=== PATIENT | male | born 1940 ===

== ENCOUNTER 2017-05-13 21:25 | Inpatient (IN) | payer OTHER ==
[2017-05-13 22:24] LABS: BASO # 0.1 K/uL (0.0-0.2); BASO % 0.9 % (0.0-2.0); EOS # 0.6 K/uL (0.0-0.7); LYMPH # 2.3 K/uL (1.0-4.3); LYMPH % 27.9 % (20.0-40.0); MEAN CELL VOLUME 92.3 fl (80.0-94.0); MEAN CORPUSCULAR HEMOGLOBIN 29.8 pg (27.0-31.0); MEAN CORPUSCULAR HGB CONC 32.3 g/dL (33.0-37.0); MEAN PLATELET VOLUME 8.4 fl (7.2-11.7); MONO # 0.9 K/uL (0.0-0.8); MONO % 11.4 % (0.0-10.0); NEUT # 4.4 K/uL (1.8-7.0); NEUT % 52.8 % (50.0-75.0); RBC 4.71 Mil/uL (4.40-5.90); RED CELL DISTRIBUTION WIDTH 13.3 % (11.5-14.5); WHITE BLOOD COUNT 8.3 K/uL (4.8-10.8)
[2017-05-13 22:35] LABS: ALT/SGPT 27 U/L (21-72); AST/SGOT 25 U/L (17-59); BLOOD UREA NITROGEN 17 mg/dl (9-20); CALCIUM 9.6 mg/dL (8.4-10.2); GFR AFRICAN-AMERICAN > 60; GFR NON-AFRICAN AMERICAN > 60; HDL CHOLESTEROL 40 MG/DL (30-70)
[2017-05-13 22:41] LABS: INR 0.9 (0.9-1.2); PARTIAL THROMBOPLASTIN TIME 31.3 Seconds (25.6-37.1); PROTHROMBIN TIME 10.4 Seconds (9.8-13.1)
[2017-05-13 22:46] LABS: LDL CHOLESTEROL 195 mg/dL (0-129)
--- NOTE | 2017-05-14 00:20 | CT ---
EXAM: CT Head Without Intravenous Contrast CLINICAL HISTORY: 76 years old, male; Signs and symptoms; Other: Numbness; Additional info: Left facial numbness TECHNIQUE: Axial computed tomography images of the head/brain without intravenous contrast. All CT scans at this facility use one or more dose reduction techniques, viz.: automated exposure control; ma/kV adjustment per patient size (including targeted exams where dose is matched to indication; i.e. head); or iterative reconstruction technique. Coronal and sagittal reformatted images were created and reviewed. COMPARISON: No relevant prior studies available. FINDINGS: Brain: Mild atrophy. No intracranial hemorrhage. No mass. Several scattered foci of decreased attenuation within periventricular/subcortical white matter. No definite edema. Ventricles: No hydrocephalus. Bones/joints: No acute fracture. Soft tissues: Unremarkable. Vasculature: Minimal atherosclerotic disease of intracranial arteries. Sinuses: Scattered minimal to mild mucosal thickening/minimal fluid. Mastoid air cells: No mastoid effusion. Orbits: Unremarkable as visualized. IMPRESSION: 1. Nonspecific white matter changes. Acute infarction may be CT occult within first 24 hours. If a focal deficit persists, consider followup CT or MRI for further evaluation. 2. Incidental/non-acute findings are described above.
--- NOTE | 2017-05-14 00:33 | ED PDOC ---
HPI:STROKE - Time Time: 21:49 - Historian Historian: Patient - Chief Complaint Chief Complaint: Numbness (Left-sided facial numbness) - Onset Date: 05/13/17 Time: 07:00 Onset: Hours (x14 hours) - Timing Timing: Currently Symptomatic, Improved - Context Context: Sitting - Location Locate left: Face - Radiation Radiation: None - Severity of pain Pain Scale:: 0 - Associated Symptoms Associated symptoms:: Numbness - Exacerbated by Exacerbated by:: Nothing - Relieved by Relieved by:: Nothing - TPA Positive for Contraindication: No - Notes: Notes:: 76 year old male presents to ED with complaints of intermittent left-sided facial numbness x14 hours and has a past medical history of arthritis. Patient notes waking up with the numbness. Presents to ED for evaluation after friend advised him to x1 hour ago. (+) left hand numbness and left-sided tongue numbness. (-) trouble ambulating, speaking, swallowing, or facial droop. Notes similar episode x1 month ago but denies ever seeking medical attention. Notes episode spontaneously resolved after a couple of days. Notes taking a baby ASA QD. (-) headache, nausea, vomiting, diarrhea, or SOB. PCP: in [place] NIHSS Stroke Scale - Date/Time Evaluation Performed Date Performed: 05/13/17 Time Performed: 21:49 When Was NIHSS Performed: Baseline - How Severe is the Stroke Level of Consciousness: 0=Alert LOC to Questions: 0=Both comments correct LOC to commands: 0=Obeys both correctly Best Gaze: 0=Normal Visual: 0=No visual loss Facial: 0=Normal Motor Arm - Left: 0=No drift Motor Arm - Right: 0=No drift Motor Leg - Left: 0=No drift Motor Leg - Right: 0=No drift Limb Ataxia: 0=Absent Sensory: 0=Normal Best Language: 0=No aphasia Dysarthia: 0=Normal articulation Extinction & Inattention (Neglect): 0=Normal, no object Score: 0 Severity Of Stroke: 0 = No Stroke rTPA Inclusion/Exclusion - Refusal of Treatment Patient Refused Treatment: No - Inclusion Criteria for Altepase Patient is 18 years or Older: Yes The Clinical Diagnosis of Ischemic Stroke That is Causing a Potentially Disabling Neurological Deficit: Yes Time of Onset is Well Established to be Less Than 270 Minute Before Treatment Would Begin: No Risk/Benefit Discussed With Patient/Family Member Present: Yes - Warning to TPA With Conditions Condition: Stroke Serevity Too Mild, Rapid Improvement Past Medical History Reviewed: Historical Data, Nursing Documentation, Vital Signs Vital Signs: Last Vital Signs Temp 98.2 F 05/13/17 21:32 Pulse 70 05/13/17 21:32 Resp 18 05/13/17 21:32 BP 146/76 05/13/17 21:32 Pulse Ox 96 05/13/17 21:32 - Medical History PMH: Arthritis - Surgical History Surgical History: No Surg Hx - Family History Family History: States: No Known Family Hx - Living Arrangements Living Arrangements: With Family - Social History Current smoker - smoking cessation education provided: No Ex-Smoker (has not smoked in the last 12 months): No Alcohol: None Drugs: Denies - Home Medications Home Medications: Ambulatory Orders Medication Instructions Recorded Aspirin [Adult Aspirin Regimen] 81 mg PO DAILY 05/14/17 - Allergies Allergies/Adverse Reactions: Allergies Allergy/AdvReac Type Severity Reaction Status Date / Time No Known Allergies Allergy Verified 05/27/14 16:21 Review of Systems ROS Statement: Except As Marked, All Systems Reviewed And Found Negative Respiratory: Negative for: Shortness of Breath Gastrointestinal: Negative for: Nausea, Vomiting, Diarrhea Neurological: Positive for: Numbness (left sided facial numbness, left hand numbness, left-sided tongue numbness). Negative for: Weakness, Incoordination, Change in Speech, Altered Mental Status, Headache, Other ((-) facial droop, trouble speaking, trouble swallowing) Physical Exam - Reviewed Nursing Documentation Reviewed: Yes Vital Signs Reviewed: Yes - Physical Exam Appears: Positive for: Non-toxic, No Acute Distress Skin: Positive for: Normal Color, Warm, Dry Eye Exam: Positive for: Normal appearance ENT: Positive for: Normal ENT Inspection Neck: Positive for: Normal, Painless ROM, Supple Cardiovascular/Chest: Positive for: Regular Rate, Rhythm. Negative for: Murmur Respiratory: Positive for: Normal Breath Sounds. Negative for: Respiratory Distress Gastrointestinal/Abdominal: Positive for: Soft. Negative for: Tenderness Extremity: Positive for: Normal ROM. Negative for: Deformity Neurologic/Psych: Positive for: Alert, plater apprentice II-XII (intact), Oriented, Cerebellar Tests (intact), Gait (steady). Negative for: Motor/Sensory Deficits , Aphasia, Facial Droop - Laboratory Results Result Diagrams: 05/13/17 22:20 05/13/17 22:20 - ECG O2 Sat by Pulse Oximetry: 96 (RA) Pulse Ox Interpretation: Normal - Critical Care Total Time (In Min): 30 Medical Decision Making Medical Decision Makin Initial impression: left-sided facial numbness Initial plan: Patient is not candidate for code stroke due to length of onset of symptoms as well as NIH stroke scale score of 0 on arrival * CT HEAD * EKG * Labs * Lipid panel * Trop I * PTT/PT * UA 0009 * ASA 324mg PO * Re-eval 0020 FINDINGS: Brain: Mild atrophy. No intracranial hemorrhage. No mass. Several scattered foci of decreased attenuation within periventricular/subcortical white matter. No definite edema. Ventricles: No hydrocephalus. Bones/joints: No acute fracture. Soft tissues: Unremarkable. Vasculature: Minimal atherosclerotic disease of intracranial arteries. Sinuses: Scattered minimal to mild mucosal thickening/minimal fluid. Mastoid air cells: No mastoid effusion. Orbits: Unremarkable as visualized. IMPRESSION: 1. Nonspecific white matter changes. Acute infarction may be CT occult within first 24 hours. If a focal deficit persists, consider followup CT or MRI for further evaluation. 2. Incidental/non-acute findings are described above. 0033 Labs reviewed no clinically significant abnormalities. Patient remains asymptomatic in ED. Case discussed with Dr. Piper (hospitalist) who accepts patient under his care in OBS TELE. Patient refusing admission however on provider re-eval is now agreeable. Dx: TIA Scribe Attestation: Documented by Merly Watkins acting as a scribe for Ubaldo Reeder MD. DO Scribe Attestation: All medical record entries made by the Scribe were at my direction and personally dictated by me. I have reviewed the chart and agree that the record accurately reflects my personal performance of the history, physical exam, medical decision making, and the department course for this patient. I have also personally directed, reviewed, and agree with the discharge instructions and disposition. Disposition - Clinical Impression Clinical Impression: TIA (transient ischemic attack) - Patient ED Disposition Is Patient to be Admitted: Yes (OBS TELE) Counseled Patient/Family Regarding: Studies Performed, Diagnosis - Disposition Disposition Time: 00:33 Condition: STABLE - Pt Status Changed To: Hospital Disposition Of: Observation - POA Present On Arrival: None
--- NOTE | 2017-05-14 01:44 | CP.PCM.HP ---
History of Present Illness - History of Present Illness History of Present Illness: PMD: In [place] Chief complaint: Left face and left upper extremity numbness The patient was britt nd examined in the ED HPI:76 years old male with no significant medical hx comes with Intermittent left facial numbness for 14 hours. He awoke with this numbness which also involves the left side of his tongue. He also has numbness at the upper left extremity. No trouble in swallowing, speaking, nor ambulating. No facial droop nor weakness at the extremities. He had a similar episode one month ago but this resolved spontaneously over few days. PMH: Arthritis PSH: Denies SH: No illegal drug use; no Alcohol use; Never smoked FH: States: No Known family Allergies: NKDA Medication: ASA Present on Admission - Present on Admission Any Indicators Present on Admission: No History of DVT/PE: No History of Uncontrolled Diabetes: No Urinary Catheter: No Decubitus Ulcer Present: No Review of Systems - Constitutional Constitutional: absent: Fatigue, Fever, Headache, Lethargy, Sleep Apnea - EENT Eyes: Requires Corrective Lenses. absent: Floaters, Itchy Eyes, Loss of Peripheral Vision, Spots in Vision Ears: absent: Decreased Hearing, Ear Discharge, Ear Pain, Tinnitus Nose/Mouth/Throat: absent: Epistaxis, Nasal Congestion, Nasal Discharge, Sinus Pain, Sinus Pressure - Cardiovascular Cardiovascular: absent: Chest Pain, Dyspnea, Edema - Respiratory Respiratory: absent: Cough, Dyspnea, Dyspnea on Exertion, Wheezing - Gastrointestinal Gastrointestinal: absent: Abdominal Pain, Constipation, Diarrhea, Nausea, Vomiting - Genitourinary Genitourinary: absent: Dysuria, Flank Pain, Hematuria, Urinary Frequency - Musculoskeletal Musculoskeletal: Arthralgias. absent: Back Pain, Joint Swelling, Muscle Weakness - Integumentary Integumentary: absent: Pruritus, Rash, Skin Ulcer, Sores, Striae, Swelling - Neurological Neurological: Numbness. absent: Confusion, Dizziness, Headaches, Weakness - Psychiatric Psychiatric: absent: Anxiety, Depression, Panic Attacks - Endocrine Endocrine: absent: Palpitations, Polydipsia, Polyphagia, Polyuria - Hematologic/Lymphatic Hematologic: absent: Easy Bleeding, Easy Bruising Past Patient History - Past Medical History & Family History Past Medical History?: Yes - Past Social History Smoking Status: Never Smoked Chewing Tobacco Use: No Cigar Use: No Alcohol: None Drugs: Denies Home Situation {Lives}: With Family - CARDIAC Hx Cardiac Disorders: No - PULMONARY Hx Respiratory Disorders: No - NEUROLOGICAL Hx Neurological Disorder: No - HEENT Hx HEENT Problems: No - RENAL Hx Chronic Kidney Disease: No - HEMATOLOGICAL/ONCOLOGICAL Hx Blood Disorders: No - INTEGUMENTARY Hx Dermatological Problems: No - MUSCULOSKELETAL/RHEUMATOLOGICAL Hx Arthritis: Yes - GASTROINTESTINAL Hx Gastrointestinal Disorders: No - GENITOURINARY/GYNECOLOGICAL Hx Genitourinary Disorders: No - PSYCHIATRIC Hx Psychophysiologic Disorder: No - SURGICAL HISTORY Hx Surgeries: No - ANESTHESIA Hx Anesthesia: No Meds Allergies/Adverse Reactions: Allergies Allergy/AdvReac Type Severity Reaction Status Date / Time No Known Allergies Allergy Verified 05/27/14 16:21 Physical Exam - Constitutional Appears: No Acute Distress - Head Exam Head Exam: ATRAUMATIC, NORMAL INSPECTION, NORMOCEPHALIC - Eye Exam Eye Exam: EOMI, Normal appearance Pupil Exam: NORMAL ACCOMODATION, PERRL - ENT Exam ENT Exam: Mucous Membranes Moist, Normal Exam, Normal External Ear Exam, Normal Oropharynx - Neck Exam Neck exam: Positive for: Full Rom, Normal Inspection - Respiratory Exam Respiratory Exam: Clear to Auscultation Bilateral. absent: Rales, Rhonchi, Wheezes - Cardiovascular Exam Cardiovascular Exam: REGULAR RHYTHM, RRR, +S1, +S2. absent: Diastolic murmur, JVD - GI/Abdominal Exam GI & Abdominal Exam: Normal Bowel Sounds, Soft. absent: Hypoactive Bowel Sounds , Mass, Tenderness - Rectal Exam Rectal Exam: Deferred - Extremities Exam Extremities exam: Positive for: full ROM, normal inspection. Negative for: joint swelling - Back Exam Back exam: NORMAL INSPECTION. absent: CVA tenderness (L), CVA tenderness (R) - Neurological Exam Neurological exam: Alert, CN II-XII Intact, Oriented x3 Additional comments: awake ,Alert, no facial droop, motor strength 5/5 at left upper and left lower extremities. sensation to light touch decreased at the left hand. - Psychiatric Exam Psychiatric exam: Normal Affect, Normal Mood - Skin Skin Exam: Dry, Normal Color, Warm Results - Vital Signs Recent Vital Signs: Last Vital Signs Temp 98.2 F 05/13/17 21:32 Pulse 70 05/13/17 21:32 Resp 18 05/13/17 21:32 BP 146/76 05/13/17 21:32 Pulse Ox 96 05/14/17 01:14 - Labs Result Diagrams: 05/13/17 22:20 05/13/17 22:20 Labs: Laboratory Results - last 24 hr 05/13/17 05/13/17 05/13/17 21:56 22:20 22:20 WBC 8.3 RBC 4.71 Hgb 14.0 Hct 43.5 MCV 92.3 MCH 29.8 MCHC 32.3 L RDW 13.3 Plt Count 292 MPV 8.4 Neut % (Auto) 52.8 Lymph % (Auto) 27.9 Schleicher % (Auto) 11.4 H Eos % (Auto) 7.0 H Baso % (Auto) 0.9 Neut # (Auto) 4.4 Lymph # (Auto) 2.3 Schleicher # (Auto) 0.9 H Eos # (Auto) 0.6 Baso # (Auto) 0.1 PT INR APTT Sodium 142 Potassium 5.0 Chloride 100 Carbon Dioxide 29 Anion Gap 18 BUN 17 Creatinine 0.8 Est GFR ( Amer) > 60 Est GFR (Non-Af Amer) > 60 POC Glucose (mg/dL) 91 Random Glucose 101 Calcium 9.6 Total Bilirubin 0.4 AST 25 ALT 27 Alkaline Phosphatase 72 Troponin I < 0.0120 Total Protein 8.1 Albumin 4.0 Globulin 4.1 H Albumin/Globulin Ratio 1.0 Triglycerides 113 Cholesterol 255 H LDL Cholesterol Direct 195 H HDL Cholesterol 40 05/13/17 22:20 WBC RBC Hgb Hct MCV MCH MCHC RDW Plt Count MPV Neut % (Auto) Lymph % (Auto) Schleicher % (Auto) Eos % (Auto) Baso % (Auto) Neut # (Auto) Lymph # (Auto) Schleicher # (Auto) Eos # (Auto) Baso # (Auto) PT 10.4 INR 0.9 APTT 31.3 Sodium Potassium Chloride Carbon Dioxide Anion Gap BUN Creatinine Est GFR ( Amer) Est GFR (Non-Af Amer) POC Glucose (mg/dL) Random Glucose Calcium Total Bilirubin AST ALT Alkaline Phosphatase Troponin I Total Protein Albumin Globulin Albumin/Globulin Ratio Triglycerides Cholesterol LDL Cholesterol Direct HDL Cholesterol - Impressions Impression: NSR 69/min - Imaging and Cardiology CT scan - head Status: Image reviewed by me, Report reviewed by me Additional comment: EXAM: CT Head Without Intravenous Contrast FINDINGS: Brain: Mild atrophy. No intracranial hemorrhage. No mass. Several scattered foci of decreased attenuation within periventricular/subcortical white matter. No definite edema. Ventricles: No hydrocephalus. Bones/joints: No acute fracture. Soft tissues: Unremarkable. Vasculature: Minimal atherosclerotic disease of intracranial arteries. Sinuses: Scattered minimal to mild mucosal thickening/minimal fluid. Mastoid air cells: No mastoid effusion. Orbits: Unremarkable as visualized. IMPRESSION: 1. Nonspecific white matter changes. Acute infarction may be CT occult within first 24 hours. If a focal deficit persists, consider followup CT or MRI for further evaluation. 2. Incidental/non-acute findings are described above. Assessment & Plan - Assessment and Plan (Free Text) Assessment: #. TIA #. Arthritis Plan: 76 years old male with no significant medical hx comes with Intermittent left facial numbness for 14 hours. He awoke with this numbness which also involves the left side of his tongue. He also has numbness at the upper left extremity. He had a similar episode one month ago but this resolved spontaneously over few days. #. TIA r/o CVA CT- Head 1. Nonspecific white matter changes. Acute infarction may be CT occult within first 24 hours. If a focal deficit persists, consider followup CT or MRI for further evaluation. - Consult Dr rosenberg Neurologist - Neuro check Q4H - ASA - lipitor - LDL 195 - HDL 40 - Follow MRI and MRA of Head - Carotid doppler - ECHO with bubble study - PT/OT #. Arthritis - Pain management #. DVT Prophylaxis with Lovenox #. Code Status: Full - Date & Time Date: 05/14/17 Time: 01:44
[2017-05-14 07:11] LABS: SQUAMOUS EPITHIAL < 1 /hpf (0-5); URINE BILIRUBIN NEGATIVE (NEGATIVE); URINE BLOOD NEGATIVE (NEGATIVE); URINE CLARITY CLEAR (Clear); URINE COLOR YELLOW (YELLOW); URINE GLUCOSE (UA) NEG (Normal); URINE LEUKOCYTE ESTERASE NEG Leu/uL (Negative); URINE NITRATE NEGATIVE (NEGATIVE); URINE PROTEIN NEGATIVE (NEGATIVE); URINE UROBILINOGEN 0.2-1.0 mg/dL (0.2-1.0)
--- NOTE | 2017-05-14 09:46 | MRI ---
PROCEDURE: MRI BRAIN WITHOUT CONTRAST HISTORY: Numbness left face and left upper extremity COMPARISON: Noncontrast head CT from 05/13/2017. TECHNIQUE: Multiplanar, multisequence MR images of the brain were obtained without intravenous contrast enhancement. FINDINGS: HEMORRHAGE: None DWI: There are multifocal small areas of restricted diffusion in the right frontal and parietal cortex as well as border zone deep frontal and parietal white matter. BRAIN PARENCHYMA: There is increased T2/FLAIR hyperintensity corresponding to the areas of restricted diffusion in the right frontal and parietal cortex, and border zone territory. There are moderate chronic microangiopathic changes. There is no mass, mass effect or abnormal extra-axial fluid collection. The midline sagittal structures are normal. VENTRICLES: There is mild age-related global parenchymal volume loss and proportionate enlargement of the ventricles and cortical sulci. CRANIUM: There is normal bone marrow signal pattern. ORBITS: Grossly unremarkable. PARANASAL SINUSES/MASTOIDS: There is mild mucosal thickening in the paranasal sinuses and trace mastoid effusions. VASCULAR SYSTEM: There are normal signal voids in the larger intracranial arteries the. OTHER FINDINGS: None. IMPRESSION: Multifocal small acute infarctions in the right frontal and parietal cortex, and border zone territory. Moderate chronic microangiopathic changes and mild age-related global parenchymal volume loss. Important findings were discussed with nurse Batsheva Billy in the ER on 05/14/2017 at 9:38 a.m.
--- NOTE | 2017-05-14 09:48 | MRI ---
PROCEDURE: Magnetic Resonance Angiography Brain HISTORY: Left face numbness and left upper extremity numbness COMPARISON: None available. TECHNIQUE: 3D time of flight MR angiography of the intracranial arteries was performed. Rotating maximum intensity projection images were generated. FINDINGS: INTERNAL CAROTID ARTERIES: There is normal flow related signal. The skull base, petrous, cavernous and supraclinoid segments are bilaterally widely patient. ANTERIOR CEREBRAL ARTERIES: There is normal flow related signal. The right A1 segment is hypoplastic, an anatomic variant. A1 and A2 segments are widely patent. Smaller distal branches unremarkable, as visualized. MIDDLE CEREBRAL ARTERIES: There is normal flow related signal. M1 and M2 segments are widely patent. Perisylvian branches grossly symmetric. POSTERIOR CIRCULATION: Basilar Artery: There is normal flow related signal. Distal Vertebral Arteries: There is normal flow related signal. Posterior Cerebral Arteries: There is normal flow related signal. There is origin of the right posterior cerebral artery, an anatomic variant. Posterior Inferior Cerebellar Arteries: There is normal flow related signal. ANEURYSM/ VASCULAR MALFORMATIONS: None. OTHER FINDINGS: None. IMPRESSION: Normal MR angiography of the brain.
--- NOTE | 2017-05-14 09:53 | MRI ---
PROCEDURE: MR Angiography of the neck without contrast HISTORY: TIA COMPARISON: None available. TECHNIQUE: 3D [id number] angiography of the neck was performed. Rotating maximum intensity projection images of the cervical carotid and vertebral arteries were generated. The origins of the common carotid arteries were not visualized, which is a limitation inherent to the non-contrast time of flight technique. FINDINGS: RIGHT CAROTID ARTERIES: Common Carotid Artery: Normal. Carotid Bifurcation: Normal. Internal Carotid Artery:There is an apparent short segment stenosis in the internal carotid artery approximately 1.5 cm distal to the origin. External Carotid Artery (proximal branches): Normal. LEFT CAROTID ARTERIES: Common Carotid Artery: Normal. Carotid Bifurcation: Normal. Internal Carotid Artery:Normal. External Carotid Artery (proximal branches): Normal. VERTEBRAL ARTERIES: Right Vertebral Artery: Normal. Left Vertebral Artery: Normal. OTHER FINDINGS: None. IMPRESSION: 1. No evidence of hemodynamically significant stenosis in the internal carotid arteries. 2. Apparent sought segment stenosis in the right internal carotid artery approximately 1.5 cm distal to the origin. Correlation with CTA/MRA of the neck with intravenous contrast is recommended for definitive evaluation.
[2017-05-14] MEDS: Enoxaparin 40 mg Syringe SC SCH (10:39)
[2017-05-14] MEDS ORDERED: Iodixanol 320 MG/ML 100 ML BOTTLE IV ONE (11:30)
[2017-05-14] MEDS ORDERED: Sodium Chloride 0.9% 50 ML IV ONE (11:31)
--- NOTE | 2017-05-14 12:45 | CT ---
PROCEDURE: CT Angiography of the Brain. HISTORY: CVA , stenotic lesion internal carotid COMPARISON: None available. TECHNIQUE: CT angiography of the intracranial arteries was performed. Coronal and sagittal maximum intensity projection reformated images were generated. Radiation dose: Total exam DLP = 606.80 mGy-cm. This CT exam was performed using one or more of the following dose reduction techniques: Automated exposure control, adjustment of the mA and/or kV according to patient size, and/or use of iterative reconstruction technique. FINDINGS: INTERNAL CEREBRAL ARTERIES: Unremarkable. The skull base, petrous, cavernous and supraclinoid segments are bilaterally widely patent. ANTERIOR CEREBRAL ARTERIES: Adequately patent. Hypoplastic right A1 GA segment is identified with the left A1 on the bilateral A2 segments widely patent. Smaller distal branches unremarkable, as visualized. MIDDLE CEREBRAL ARTERIES: Unremarkable. M1 and M2 segments are widely patent. Perisylvian branches grossly symmetric. POSTERIOR CIRCULATION: Basilar Artery: Unremarkable. Distal Vertebral Arteries: Unremarkable. Posterior Cerebral Arteries: Unremarkable. Posterior Inferior Cerebellar Arteries: Unremarkable. NECK CTA: Common Carotid arteries: The bilateral common carotid appear widely patent with limited atherosclerotic plaque identified at the left carotid bulb. Mild atherosclerotic plaque is appreciated at the right carotid bulb without significant stenosis. Internal Carotid arteries: No significant stenosis is appreciated at the left cervical internal carotid artery. However, there is a moderate stenosis identified at the proximal right ICA similar to that seen in the prior cervical MR angiogram 05/14/2017 approximately 1.5 cm from the origin on the order of 60-70 percent in a short segment. Limited atherosclerotic plaque is seen distal to this stenosed segment as well. External Carotid arteries: Trace bilateral atherosclerotic plaque is seen without significant stenosis in the bilateral external carotid arteries. . Vertebral arteries: The bilateral vertebral arteries appear normal in caliber from their origins to their junction with the basilar artery. Vertebrobasilar system appears dominant. No significant stenosis or definite pattern of dissection. Incidentally, the bilateral subclavian arteries are widely patent as well as the brachiocephalic artery. ANEURYSM/ VASCULAR MALFORMATIONS: None. OTHER FINDINGS: Biapical pulmonary fibrosis appreciated. IMPRESSION: 1. A moderate stenosis reiterated at the proximal right ICA and a short segment as described above. No significant left ICA stenosis. Bilateral common carotid arteries are patent the vascular sclerotic plaque identified at the right greater left carotid bulb regions extending into the external carotid artery somewhat. 2. No significant stenosis identified in the CT angiogram of the brain. Congenital findings are minimal as discussed above.
--- NOTE | 2017-05-14 14:02 | US ---
PROCEDURE: Duplex ultrasound of the carotid and vertebral arteries. HISTORY: numbness left face and left upper extremity COMPARISON: CTA an MRA neck from 05/14/2017 TECHNIQUE: Grayscale and duplex Doppler evaluation of the cervical carotid and vertebral arteries were performed. The common carotid, carotid bifurcations and cervical ICA and proximal ECA were evaluated. The vertebral arteries were evaluated for gross patency and direction. FINDINGS: There are calcified atherosclerotic plaques in bilateral carotid bulbs and proximal internal carotid arteries. RIGHT CAROTID ARTERIES: Common Carotid Artery: Normal. Maximal flow velocity of 91.8 cm/s. Carotid Bifurcation: Normal. Internal Carotid Artery:Elevated peak systolic velocity 103.3. Maximal flow velocity of 205.8 cm/s. External Carotid Artery (proximal branches): Normal. Maximal flow velocity of 103.3 cm/s. ICA/CCA Ratio: 2.6 LEFT CAROTID ARTERIES: Common Carotid Artery: Normal. Maximal flow velocity of 109.7 cm/s. Carotid Bifurcation: Normal. Internal Carotid Artery:Normal. Maximal flow velocity of 81.2 cm/s. External Carotid Artery (proximal branches): Normal. Maximal flow velocity of 99.4 cm/s. ICA/CCA Ratio: 0.9 VERTEBRAL ARTERIES: Right Vertebral Artery: Patent. Antegrade flow. Left Vertebral Artery: Patent. Antegrade flow. OTHER FINDINGS: None. IMPRESSION: 1. Elevated peak systolic velocity and ICA/ CCA velocity ratio in the right internal carotid artery corresponding to severe (62 to 79%) stenosis. 2. No evidence of hemodynamically significant stenosis in the left internal carotid artery. 3. Patent vertebral arteries with antegrade flow.
--- NOTE | 2017-05-14 14:06 | CP.PCM.CON ---
History of Present Illness - History of Present Illness History of Present Illness: Mr Christine is a 76 yr old right handed male, orginally from [place] who was well until 14 hours ago, when he awoke with numbness of the left face and left upper extremity and left hadn weakness. He did not have aphasia, dysarthria, gait difficulties or confusion. The patient is here visiting from [place] and is staying with his sister. He denies tobacco, etoh or any other illicit drugs. Of note, about one month ago, he had a similar spell that resolved. PMH: Arthritis PSH: Denies SH: No illegal drug use; no Alcohol use; Never smoked FH: From [place]. has sister who he is visiting. Allergies: NKDA Medication: ASA on exam: aaox3. Pupils 3mm-2mm with light. EOMI. Cn 2-12 normal. speech fluent. Can name and repeat. Motor: strength: left medical records tech is 3/5, we: 2/5, ef: 2/5. Sensory: decreased ft, pin in left arm more than leg. Gait is normal. +2 dtr ul and ll bl. Toes downgoing. No clonus. Past Patient History - Past Medical History & Family History Past Medical History?: Yes - Past Social History Smoking Status: Never Smoked Chewing Tobacco Use: No Cigar Use: No Alcohol: None Drugs: Denies Home Situation {Lives}: With Family - CARDIAC Hx Cardiac Disorders: No - PULMONARY Hx Respiratory Disorders: No - NEUROLOGICAL Hx Neurological Disorder: No - HEENT Hx HEENT Problems: No - RENAL Hx Chronic Kidney Disease: No - HEMATOLOGICAL/ONCOLOGICAL Hx Blood Disorders: No - INTEGUMENTARY Hx Dermatological Problems: No - MUSCULOSKELETAL/RHEUMATOLOGICAL Hx Arthritis: Yes - GASTROINTESTINAL Hx Gastrointestinal Disorders: No - GENITOURINARY/GYNECOLOGICAL Hx Genitourinary Disorders: No - PSYCHIATRIC Hx Psychophysiologic Disorder: No - SURGICAL HISTORY Hx Surgeries: No - ANESTHESIA Hx Anesthesia: No Meds Allergies/Adverse Reactions: Allergies Allergy/AdvReac Type Severity Reaction Status Date / Time No Known Allergies Allergy Verified 05/27/14 16:21 - Medications Medications: Current Medications Aspirin (Ecotrin) 81 mg PO DAILY [facility] Last Admin: 05/14/17 10:39 Dose: 81 mg Atorvastatin Calcium (Lipitor) 40 mg PO DAILY [facility] Enoxaparin Sodium (Lovenox) 40 mg SC DAILY [facility] PRN Reason: Protocol Last Admin: 05/14/17 10:39 Dose: 40 mg Results - Vital Signs Recent Vital Signs: Last Vital Signs Temp 98.0 F 05/14/17 08:35 Pulse 76 05/14/17 08:35 Resp 18 05/14/17 08:35 BP 103/58 L 05/14/17 05:23 Pulse Ox 100 05/14/17 08:35 - Labs Result Diagrams: 05/13/17 22:20 05/13/17 22:20 Labs: Laboratory Results - last 24 hr 05/13/17 05/13/17 05/13/17 21:56 22:20 22:20 WBC 8.3 RBC 4.71 Hgb 14.0 Hct 43.5 MCV 92.3 MCH 29.8 MCHC 32.3 L RDW 13.3 Plt Count 292 MPV 8.4 Neut % (Auto) 52.8 Lymph % (Auto) 27.9 Riley % (Auto) 11.4 H Eos % (Auto) 7.0 H Baso % (Auto) 0.9 Neut # (Auto) 4.4 Lymph # (Auto) 2.3 Riley # (Auto) 0.9 H Eos # (Auto) 0.6 Baso # (Auto) 0.1 ESR PT INR APTT Sodium 142 Potassium 5.0 Chloride 100 Carbon Dioxide 29 Anion Gap 18 BUN 17 Creatinine 0.8 Est GFR ( Amer) > 60 Est GFR (Non-Af Amer) > 60 POC Glucose (mg/dL) 91 Random Glucose 101 Calcium 9.6 Total Bilirubin 0.4 AST 25 ALT 27 Alkaline Phosphatase 72 Troponin I < 0.0120 Total Protein 8.1 Albumin 4.0 Globulin 4.1 H Albumin/Globulin Ratio 1.0 Triglycerides 113 Cholesterol 255 H LDL Cholesterol Direct 195 H HDL Cholesterol 40 Urine Color Urine Clarity Urine pH Ur Specific Chester Urine Protein Urine Glucose (UA) Urine Ketones Urine Blood Urine Nitrate Urine Bilirubin Urine Urobilinogen Ur Leukocyte Esterase Urine RBC (Auto) Urine Microscopic WBC Ur Squamous Epith Cells 05/13/17 05/14/17 05/14/17 22:20 05:45 06:49 WBC RBC Hgb Hct MCV MCH MCHC RDW Plt Count MPV Neut % (Auto) Lymph % (Auto) Riley % (Auto) Eos % (Auto) Baso % (Auto) Neut # (Auto) Lymph # (Auto) Riley # (Auto) Eos # (Auto) Baso # (Auto) ESR 43 H PT 10.4 INR 0.9 APTT 31.3 Sodium Potassium Chloride Carbon Dioxide Anion Gap BUN Creatinine Est GFR ( Amer) Est GFR (Non-Af Amer) POC Glucose (mg/dL) Random Glucose Calcium Total Bilirubin AST ALT Alkaline Phosphatase Troponin I Total Protein Albumin Globulin Albumin/Globulin Ratio Triglycerides Cholesterol LDL Cholesterol Direct HDL Cholesterol Urine Color Yellow Urine Clarity Clear Urine pH 7.0 Ur Specific Chester 1.013 Urine Protein Negative Urine Glucose (UA) Neg Urine Ketones Negative Urine Blood Negative Urine Nitrate Negative Urine Bilirubin Negative Urine Urobilinogen 0.2-1.0 Ur Leukocyte Esterase Neg Urine RBC (Auto) 3 Urine Microscopic WBC < 1 Ur Squamous Epith Cells < 1 - Imaging and Cardiology MRI - head Additional comment: MRI Brain : shows two acute strokes, ischemic in the right parietal and right MCA distribution. CTA : shows moderate Right iCA stenosis. Assessment & Plan - Assessment and Plan (Free Text) Assessment: 76 yr old male with new embolic stroke in right mca territory, most likely from rt ica stenosis as etiology. We will consult interventional for possible ICA stenting, start stroke workup and dual antiplatelet therapy. Plan: 1. Admit to telemetry floor 2. ECHO, Carotid Dopplers 3. Asa and plavix 4. Consult 5. Keep BP at 180-190/90 6. physical speech and occupational therapy Dr.Gautami Christine MD, DPN
[2017-05-14 17:52] VITALS: BMI 22.0
--- NOTE | 2017-05-14 21:00 | CARD ---
APPROVED REPORT EXAM: Two-dimensional and M-mode echocardiogram with Doppler and color Doppler. Other Information Quality : GoodRhythm : NSR INDICATION CVA/TIA Echo Enhancing Agent Indication: Rule Out Septal Defect Agent/Amount Used: Agitated Saline 2D DIMENSIONS IVSd0.63 (0.7-1.1cm)LVDd4.28 (3.9-5.9cm) LVOT Diameter1.76 (1.8-2.4cm)PWd0.63 (0.7-1.1cm) IVSs1.16 (0.8-1.2cm)LVDs2.50 (2.5-4.0cm) FS (%) 41.5 %PWs1.19 (0.8-1.2cm) LVEF (%)55.0 (>50%) M-Mode DIMENSIONS Left Atrium (MM)3.29 (2.5-4.0cm)IVSd0.93 (0.7-1.1cm) Aortic Root3.32 (2.2-3.7cm)LVDd4.94 (4.0-5.6cm) Aortic Cusp Exc.1.54 (1.5-2.0cm)PWd0.82 (0.7-1.1cm) IVSs1.29 cmFS (%) 40 % LVDs2.99 (2.0-3.8cm)PWs1.13 cm Mitral Valve MV E Hwtdbtuw66.4cm/sMV DECEL [id number] A Ppftyvaz76.8cm/s MV [id number]/A ratio1.2MVA (PHT)4.58cm2 TDI Lateral E' Peak V11.08cm/sMedial E' Peak V6.76cm/sE/Lateral E'4.5 E/Medial E'7.5 Pulmonary Valve PV Peak Vroyvhvt96.0cm/s LEFT VENTRICLE The left ventricle is normal size. There is mild concentric left ventricular hypertrophy. The left ventricular function is normal. The left ventricular ejection fraction is within the normal range. There is normal LV segmental wall motion. Transmitral Doppler flow pattern is abnormal. RIGHT VENTRICLE The right ventricle is normal size. There is normal right ventricular wall thickness. The right ventricular systolic function is normal. ATRIA The left atrium size is normal. The right atrium size is normal. AORTIC VALVE The aortic valve is moderately thickened. There is mild aortic regurgitation. There is no aortic valvular stenosis. MITRAL VALVE The mitral valve is moderately thickened. There is no mitral valve stenosis. There is no mitral valve regurgitation noted. TRICUSPID VALVE The tricuspid valve is normal in structure. There is no tricuspid valve regurgitation noted. PULMONIC VALVE The pulmonary valve is normal in structure. There is trace pulmonic valvular regurgitation. GREAT VESSELS The aortic root is normal in size. The IVC was not visualized. PERICARDIAL EFFUSION The pericardium appears normal. <Conclusion> The left ventricle is normal size. There is mild concentric left ventricular hypertrophy. The left ventricular function is normal. The left ventricular ejection fraction is within the normal range. There is normal LV segmental wall motion. There is mild aortic regurgitation. Can not rule out a small PFO
--- NOTE | 2017-05-14 21:46 | CARD ---
APPROVED REPORT EKG Measurement Heart [id number] <Conclusion> Normal sinus rhythm Left axis deviation Minimal voltage criteria for LVH, may be normal variant Abnormal ECG
[2017-05-15] MEDS: Enoxaparin 40 mg Syringe SC SCH (09:05)
--- NOTE | 2017-05-15 11:45 | CP.PCM.PN ---
Subjective - Date & Time of Evaluation Date of Evaluation: 05/15/17 Time of Evaluation: 10:45 - Subjective Subjective: most of his left sided numbness resolved however still with some left arm numbness denies motor weakness no CP no SOB no abd pain gait stable Objective - Vital Signs/Intake and Output Vital Signs (last 24 hours): Temp Pulse Resp BP Pulse Ox 98.3 F 72 20 111/63 96 05/15/17 08:00 05/15/17 09:00 05/15/17 08:00 05/15/17 08:00 05/15/17 08:00 - Medications Medications: Current Medications Aspirin (Ecotrin) 81 mg PO DAILY [facility] Last Admin: 05/15/17 09:05 Dose: 81 mg Atorvastatin Calcium (Lipitor) 40 mg PO DAILY [facility] Last Admin: 05/15/17 09:05 Dose: 40 mg Clopidogrel Bisulfate (Plavix) 75 mg PO DAILY [facility] Last Admin: 05/15/17 09:12 Dose: 75 mg Enoxaparin Sodium (Lovenox) 40 mg SC DAILY [facility] PRN Reason: Protocol Last Admin: 05/15/17 09:05 Dose: 40 mg - Labs Labs: 05/13/17 22:20 05/13/17 22:20 PT 10.4 Seconds (9.8-13.1) 05/13/17 22:20 INR 0.9 (0.9-1.2) 05/13/17 22:20 APTT 31.3 Seconds (25.6-37.1) 05/13/17 22:20 - Constitutional Appears: No Acute Distress - Head Exam Head Exam: NORMAL INSPECTION, NORMOCEPHALIC - Eye Exam Eye Exam: EOMI, Normal appearance, PERRL Pupil Exam: NORMAL ACCOMODATION - ENT Exam ENT Exam: Mucous Membranes Moist, Normal External Ear Exam - Neck Exam Neck Exam: Full ROM. absent: Meningismus - Respiratory Exam Respiratory Exam: NORMAL BREATHING PATTERN. absent: Respiratory Distress - Cardiovascular Exam Cardiovascular Exam: REGULAR RHYTHM, +S1, +S2 - GI/Abdominal Exam GI & Abdominal Exam: Soft, Normal Bowel Sounds. absent: Tenderness - Extremities Exam Extremities Exam: Full ROM, Normal Capillary Refill. absent: Calf Tenderness, Pedal Edema - Back Exam Back Exam: Full ROM. absent: CVA tenderness (L), CVA tenderness (R) - Neurological Exam Neurological Exam: Alert, Awake, CN II-XII Intact, Normal Gait, Oriented x3 Additional comments: left arm numbness, sl decrease sensory - Psychiatric Exam Psychiatric exam: Normal Affect, Normal Mood - Skin Skin Exam: Dry, Normal Color, Warm Assessment and Plan (1) Acute CVA (cerebrovascular accident) Status: Acute (2) Carotid stenosis, right Status: Acute (3) DVT prophylaxis Status: Acute - Assessment and Plan (Free Text) Assessment: 76 y/o gent with came in bec of left sided numbness ( face, tongue , left arm ) . The same sxs happened a month ago however resolved and pt has been takinf ASA since. MRI head showed :Multifocal small acute infarctions in the right frontal and parietal cortex, and border zone territory. Moderate chronic microangiopathic changes and mild age-related global parenchymal volume loss. (1) Acute CVA (cerebrovascular accident) Status: Acute cont ASA, add Plavix cont statin Neurology consulted ECHO : normal EF, wallmotion, LV function (2) Carotid stenosis, right Status: Acute MRA of Neck showed short segment stenosis right ICA Dr Goodson consulted cont ASA, Plavix, Statin (3) DVT prophylaxis Status: Acute Lovenox
[2017-05-16] MEDS: Enoxaparin 40 mg Syringe SC SCH (09:28)
--- NOTE | 2017-05-16 10:18 | CP.PCM.PN ---
Subjective - Date & Time of Evaluation Date of Evaluation: 05/16/17 Time of Evaluation: 10:10 - Subjective Subjective: Mr. Christine was seen and examined at the bedside. He is alert, oriented in all spheres. He denies any dizziness, headache, blurred vision, nausea, or vomiting. He is able to follow simple commands with left side weaker than the left. His sensation remains asymmetrical with left hand less sensation than the right. Carotid ultrasound showed elevated peak systolic velocity and ICA/CCA velocity ratio in the right ICA corresponding to severe 62- 79% stenosis. No evidence of hemodynamically significant stenosis in the left ICA. Patent vertebral arteries with a antegrade flow. echocardiogram showed mild concentric LV hypertroph, normal EF function, mild aortic regurgitation, can not rule out small PFO. CTA showed moderate stenosis reiterated at the proximal right ICA and a short segment no significant left ICA stenosis. There was no untoward events overnight. Objective - Vital Signs/Intake and Output Vital Signs (last 24 hours): Temp Pulse Resp BP Pulse Ox 97.6 F 80 18 102/65 98 05/16/17 07:59 05/16/17 07:59 05/16/17 07:59 05/16/17 07:59 05/16/17 07:59 Intake and Output: 05/16/17 05/16/17 06:59 18:59 Intake Total 1400 Balance 1400 - Medications Medications: Current Medications Aspirin (Ecotrin) 81 mg PO DAILY [facility] Last Admin: 05/16/17 09:27 Dose: 81 mg Atorvastatin Calcium (Lipitor) 40 mg PO DAILY [facility] Last Admin: 05/16/17 09:28 Dose: 40 mg Clopidogrel Bisulfate (Plavix) 75 mg PO DAILY [facility] Last Admin: 05/16/17 09:28 Dose: 75 mg Enoxaparin Sodium (Lovenox) 40 mg SC DAILY [facility] PRN Reason: Protocol Last Admin: 05/16/17 09:28 Dose: 40 mg - Labs Labs: 05/13/17 22:20 05/13/17 22:20 PT 10.4 Seconds (9.8-13.1) 05/13/17 22:20 INR 0.9 (0.9-1.2) 05/13/17 22:20 APTT 31.3 Seconds (25.6-37.1) 05/13/17 22:20 - Constitutional Appears: No Acute Distress - Head Exam Head Exam: NORMAL INSPECTION - Neurological Exam Neurological Exam: Alert, Awake, Oriented x3 Neuro motor strength exam: Left Upper Extremity: 4, Right Upper Extremity: 5, Left Lower Extremity: 4, Right Lower Extremity: 5 Additional comments: He is able to follow simple commands with left side weaker than the left.His sensation remains asymmetrical with left hand less sensation than the right. Assessment and Plan (1) Acute CVA (cerebrovascular accident) Assessment & Plan: Case discussed with Dr. Costa, continue all current medical, physical, and occupational therapies. Recommend neurointerventionalist for evaluation of the right ICA. Recommend to transfer patient to [facility] ICU and schedule carotid angiogram either or Sunday. Status: Acute
--- NOTE | 2017-05-16 13:24 | CP.PCM.PN ---
Subjective - Date & Time of Evaluation Date of Evaluation: 05/16/17 Time of Evaluation: 11:45 - Subjective Subjective: With the help of a governor assembler hydraulic , discussed with pt plan for transfer to [facility] on Sunday for Angiogram of the Carotids and poss stenting Pt agrees to the plan Patient states that his symptoms improved and also he has is a slight left hand humbness no headache pt is ambulatory no CP no SOB Objective - Vital Signs/Intake and Output Vital Signs (last 24 hours): Temp Pulse Resp BP Pulse Ox 98.2 F 83 18 115/72 97 05/16/17 12:00 05/16/17 12:00 05/16/17 12:00 05/16/17 12:00 05/16/17 12:00 Intake and Output: 05/16/17 05/16/17 06:59 18:59 Intake Total 1400 Balance 1400 - Medications Medications: Current Medications Aspirin (Ecotrin) 81 mg PO DAILY [facility] Last Admin: 05/16/17 09:27 Dose: 81 mg Atorvastatin Calcium (Lipitor) 40 mg PO DAILY [facility] Last Admin: 05/16/17 09:28 Dose: 40 mg Clopidogrel Bisulfate (Plavix) 75 mg PO DAILY [facility] Last Admin: 05/16/17 09:28 Dose: 75 mg Enoxaparin Sodium (Lovenox) 40 mg SC DAILY [facility] PRN Reason: Protocol Last Admin: 05/16/17 09:28 Dose: 40 mg - Labs Labs: 05/13/17 22:20 05/13/17 22:20 PT 10.4 Seconds (9.8-13.1) 05/13/17 22:20 INR 0.9 (0.9-1.2) 05/13/17 22:20 APTT 31.3 Seconds (25.6-37.1) 05/13/17 22:20 - Constitutional Appears: No Acute Distress - Head Exam Head Exam: NORMAL INSPECTION, NORMOCEPHALIC - Eye Exam Eye Exam: EOMI, Normal appearance, PERRL Pupil Exam: NORMAL ACCOMODATION - ENT Exam ENT Exam: Mucous Membranes Moist, Normal External Ear Exam - Neck Exam Neck Exam: Full ROM. absent: Meningismus - Respiratory Exam Respiratory Exam: NORMAL BREATHING PATTERN. absent: Respiratory Distress - Cardiovascular Exam Cardiovascular Exam: REGULAR RHYTHM, +S1, +S2 - GI/Abdominal Exam GI & Abdominal Exam: Soft, Normal Bowel Sounds. absent: Tenderness - Extremities Exam Extremities Exam: Full ROM, Normal Capillary Refill. absent: Calf Tenderness, Pedal Edema - Back Exam Back Exam: Full ROM. absent: CVA tenderness (L), CVA tenderness (R) - Neurological Exam Neurological Exam: Alert, Awake, CN II-XII Intact, Normal Gait, Oriented x3 Additional comments: slight decrease sensation and slight weakness left hand - Psychiatric Exam Psychiatric exam: Normal Affect, Normal Mood - Skin Skin Exam: Dry, Normal Color, Warm Assessment and Plan (1) Acute CVA (cerebrovascular accident) Status: Acute (2) Carotid stenosis, right Status: Acute (3) DVT prophylaxis Status: Acute - Assessment and Plan (Free Text) Assessment: 76 y/o gent with came in bec of left sided numbness ( face, tongue , left arm ) . The same sxs happened a month ago however resolved and pt has been taking ASA since. MRI head showed :Multifocal small acute infarctions in the right frontal and parietal cortex, and border zone territory. Moderate chronic microangiopathic changes and mild age-related global parenchymal volume loss. (1) Acute CVA (cerebrovascular accident) Status: Acute cont ASA, added Plavix cont statin Neurology consulted - discussed with Dr Costa -rec Neuro-interventionalist consult for Carotid stenosis ECHO : normal EF, wall motion, LV function , cannot r/o small PFO (2) Carotid stenosis, right Status: Acute MRA of Neck : 1. No evidence of hemodynamically significant stenosis in the internal carotid arteries. 2. Apparent sought segment stenosis in the right internal carotid artery approximately 1.5 cm distal to the origin. Correlation with CTA/MRA of the neck with intravenous contrast is recommended for definitive evaluation. CTA of Head and Neck : 1. A moderate stenosis at the proximal right ICA No significant left ICA stenosis. Bilateral common carotid arteries are patent the vascular sclerotic plaque identified at the right greater left carotid bulb regions extending into the external carotid artery somewhat. 2. No significant stenosis identified in the CT angiogram of the brain. Congenital findings are minimal as discussed above. Dr Goodson consulted- plan for Angiogram - pt will be transferred to [facility] for the Angiogram on Sunday cont ASA, Plavix, Statin (3) DVT prophylaxis Status: Acute Lovenox
[2017-05-17 06:56] LABS: BLOOD UREA NITROGEN 29 mg/dl (9-20); CALCIUM 8.9 mg/dL (8.4-10.2); GFR AFRICAN-AMERICAN > 60; GFR NON-AFRICAN AMERICAN > 60
[2017-05-17 06:57] LABS: HEMOGLOBIN 14.6 g/dL (12.0-18.0); MEAN CELL VOLUME 91.5 fl (80.0-94.0); MEAN CORPUSCULAR HEMOGLOBIN 30.6 pg (27.0-31.0); MEAN CORPUSCULAR HGB CONC 33.4 g/dL (33.0-37.0); RBC 4.78 Mil/uL (4.40-5.90); RED CELL DISTRIBUTION WIDTH 13.3 % (11.5-14.5); WHITE BLOOD COUNT 8.3 K/uL (4.8-10.8)
[2017-05-17 07:04] LABS: PARTIAL THROMBOPLASTIN TIME 29.1 Seconds (25.6-37.1)
[2017-05-17] MEDS: Enoxaparin 40 mg Syringe SC SCH (09:00)
--- NOTE | 2017-05-17 10:38 | CP.PCM.PN ---
Subjective - Date & Time of Evaluation Date of Evaluation: 05/17/17 Time of Evaluation: 10:35 - Subjective Subjective: Mr. Christine was seen and examined at the bedside. He is alert, oriented speaks mainly Erit[place]an, utilize furnace combination analyst Bobbi Tan [id number]. He denies any headache, dizziness, lightheadedness, nausea, or vomiting. He is able to follow simple commands. He remains with left arm weakness and 5/5 strength of all other 3 extremities. He further verbalize his understanding of his procedure arian.including NPO post midnight.There was no untoward events overnight. Objective - Vital Signs/Intake and Output Vital Signs (last 24 hours): Temp Pulse Resp BP Pulse Ox 98.0 F 67 18 104/63 96 05/17/17 08:00 05/17/17 08:00 05/17/17 08:00 05/17/17 08:00 05/17/17 08:00 - Medications Medications: Current Medications Aspirin (Ecotrin) 81 mg PO DAILY [facility] Last Admin: 05/17/17 09:00 Dose: 81 mg Atorvastatin Calcium (Lipitor) 40 mg PO DAILY [facility] Last Admin: 05/17/17 09:01 Dose: 40 mg Clopidogrel Bisulfate (Plavix) 75 mg PO DAILY [facility] Last Admin: 05/17/17 09:01 Dose: 75 mg Enoxaparin Sodium (Lovenox) 40 mg SC DAILY [facility] PRN Reason: Protocol Last Admin: 05/17/17 09:00 Dose: 40 mg - Labs Labs: 05/17/17 05:30 05/17/17 05:30 PT 11.0 Seconds (9.8-13.1) 05/17/17 05:30 INR 1.0 (0.9-1.2) 05/17/17 05:30 APTT 29.1 Seconds (25.6-37.1) 05/17/17 05:30 - Constitutional Appears: No Acute Distress - Head Exam Head Exam: NORMAL INSPECTION - Neurological Exam Neurological Exam: Alert, Awake, Oriented x3 Neuro motor strength exam: Left Upper Extremity: 4, Right Upper Extremity: 5, Left Lower Extremity: 5, Right Lower Extremity: 5 Additional comments: Neurological unchanged from previous examination. Assessment and Plan (1) Acute CVA (cerebrovascular accident) Assessment & Plan: Case discussed with Dr. Costa, continue all current medical, physical, and occupational therapies. Patient is schedule for carotid angiogram with possible intervention with neurointerventionalist in [facility] cardiac catheterization department, with plan to admit the patient in [facility] ICU post procedure for close monitoring. The hospitalist will hand off the patient to another hospitalist in [facility]. The forklift picker time will be at 11:00 am. [facility] ICU filter press tender made aware of the possible admission and left message to the onsite kiln head house operator in [facility] ( [phone]) for the possible admission. Status: Acute
--- NOTE | 2017-05-17 19:06 | CP.PCM.PN ---
Subjective - Date & Time of Evaluation Date of Evaluation: 05/17/17 Time of Evaluation: 10:00 - Subjective Subjective: Patient seen and examined bedside. feeling better. Complains only of some weakness to ulnar aspect of his left hand. hemodynamically stable, afebrile Speech improved No acute issues overnight Ambulating in unit with stable gait For CT head angio tomorrow @ [facility] Objective - Vital Signs/Intake and Output Vital Signs (last 24 hours): Temp Pulse Resp BP Pulse Ox 98.1 F 83 20 118/85 99 05/17/17 16:05 05/17/17 16:05 05/17/17 16:05 05/17/17 16:05 05/17/17 16:05 - Medications Medications: Current Medications Aspirin (Ecotrin) 81 mg PO DAILY [facility] Last Admin: 05/17/17 09:00 Dose: 81 mg Atorvastatin Calcium (Lipitor) 40 mg PO DAILY [facility] Last Admin: 05/17/17 09:01 Dose: 40 mg Clopidogrel Bisulfate (Plavix) 75 mg PO DAILY [facility] Last Admin: 05/17/17 09:01 Dose: 75 mg Enoxaparin Sodium (Lovenox) 40 mg SC DAILY [facility] PRN Reason: Protocol Last Admin: 05/17/17 09:00 Dose: 40 mg - Labs Labs: 05/17/17 05:30 05/17/17 05:30 PT 11.0 Seconds (9.8-13.1) 05/17/17 05:30 INR 1.0 (0.9-1.2) 05/17/17 05:30 APTT 29.1 Seconds (25.6-37.1) 05/17/17 05:30 - Constitutional Appears: Well, Non-toxic, No Acute Distress - Head Exam Head Exam: ATRAUMATIC, NORMAL INSPECTION, NORMOCEPHALIC - Eye Exam Eye Exam: EOMI, Normal appearance, PERRL Pupil Exam: NORMAL ACCOMODATION - ENT Exam ENT Exam: Mucous Membranes Moist, Normal Exam - Neck Exam Neck Exam: Full ROM, Normal Inspection - Respiratory Exam Respiratory Exam: Clear to Ausculation Bilateral, NORMAL BREATHING PATTERN. absent: Rales, Rhonchi, Wheezes - Cardiovascular Exam Cardiovascular Exam: REGULAR RHYTHM, RRR, +S1, +S2. absent: JVD - GI/Abdominal Exam GI & Abdominal Exam: Soft, Normal Bowel Sounds. absent: Distended, Guarding, Tenderness, Rebound - Rectal Exam Rectal Exam: Deferred - Extremities Exam Extremities Exam: Full ROM, Normal Capillary Refill, Normal Inspection. absent : Calf Tenderness, Pedal Edema - Back Exam Back Exam: NORMAL INSPECTION - Neurological Exam Neurological Exam: Alert, Awake, CN II-XII Intact, Normal Gait, Oriented x3 - Psychiatric Exam Psychiatric exam: Normal Affect, Normal Mood - Skin Skin Exam: Dry, Intact, Normal Color, Warm Assessment and Plan - Assessment and Plan (Free Text) Assessment: 76 y/o male with no PMH presented with Intermittent left facial numbness , left facial droop ,left arm weakness.He had a similar episode one month ago that resolved spontaneously . CT head showed no acute stroke Patient was admitted for acute stroke MRI head showed :Multifocal small acute infarctions in the right frontal and parietal cortex, and border zone territory. Moderate chronic microangiopathic changes and mild age-related global parenchymal volume loss. Neuro was consulted , started on ASA, statin , plavix . CTA neck and head showed a moderate stenosis at proximal Left ICA. Neuro interventional was consulted and plan i sfor CTA neck at [facility] At present he is hemodynamicallty stable, with no gross neuro deficits , only some weakness to his left hand 1. Acute CVA (cerebrovascular accident) Acute only with some left hand ulnar aspect weakness. facial droop , LUE numbness and left facial numbness resolved neuro on cosnult Continue ASA, plavix, statin Echo showed normal EF and wall motion but could not rule out small PFO 2. Carotid stenosis, right Acute MRA of Neck : 1. No evidence of hemodynamically significant stenosis in the internal carotid arteries. 2. Apparent sought segment stenosis in the right internal carotid artery approximately 1.5 cm distal to the origin. Correlation with CTA/MRA of the neck with intravenous contrast is recommended for definitive evaluation. CTA of Head and Neck : 1. A moderate stenosis at the proximal right ICA No significant left ICA stenosis. Bilateral common carotid arteries are patent the vascular sclerotic plaque identified at the right greater left carotid bulb regions extending into the external carotid artery somewhat. 2. No significant stenosis identified in the CT angiogram of the brain. Congenital findings are minimal as discussed above. Dr Goodson neuro x ray operator consulted. plan to transfer patient tto [facility] IN AM for angiogram cont ASA, Plavix, Statin 3. Dyslipidemia Chol 255 LDl 199 Started Statin 4.DVT prophylaxis on lovenox
[2017-05-18 00:22] VITALS: RESP 18
[2017-05-18 05:56] LABS: HEMOGLOBIN 14.6 g/dL (12.0-18.0); MEAN CELL VOLUME 91.7 fl (80.0-94.0); MEAN CORPUSCULAR HEMOGLOBIN 30.7 pg (27.0-31.0); MEAN CORPUSCULAR HGB CONC 33.5 g/dL (33.0-37.0); RBC 4.75 Mil/uL (4.40-5.90); RED CELL DISTRIBUTION WIDTH 13.1 % (11.5-14.5); WHITE BLOOD COUNT 8.3 K/uL (4.8-10.8)
[2017-05-18 06:12] LABS: PROTHROMBIN TIME 11.5 Seconds (9.8-13.1)
[2017-05-18 06:45] LABS: BLOOD UREA NITROGEN 25 mg/dl (9-20); CALCIUM 8.9 mg/dL (8.4-10.2); GFR AFRICAN-AMERICAN > 60; GFR NON-AFRICAN AMERICAN > 60
[2017-05-18] MEDS: Enoxaparin 40 mg Syringe SC SCH (08:25)
[2017-05-18 08:36] VITALS: BP 117/75; PULSE 81; TEMP 97.6; O2SAT 97
--- NOTE | 2017-05-18 10:14 | CP.PCM.PN ---
Subjective - Date & Time of Evaluation Date of Evaluation: 05/18/17 Time of Evaluation: 10:11 - Subjective Subjective: Mr. Christine was seen and examined at the bedside. He is alert, oriented in all spheres. He denies any headache, dizziness, lightheadedness, nausea, or vomiting. He further states of maintaining NPO status and packs all his belongings to be taken with him to [facility]. He is able to ambulate within his room in steady gait with left arm weaker than the right. There was no untoward events overnight. Objective - Vital Signs/Intake and Output Vital Signs (last 24 hours): Temp Pulse Resp BP Pulse Ox 97.6 F 81 18 117/75 97 05/18/17 08:00 05/18/17 08:00 05/18/17 08:00 05/18/17 08:00 05/18/17 08:00 - Medications Medications: Current Medications Aspirin (Ecotrin) 81 mg PO DAILY [facility] Last Admin: 05/18/17 09:18 Dose: 81 mg Atorvastatin Calcium (Lipitor) 40 mg PO DAILY [facility] Last Admin: 05/18/17 08:25 Dose: Not Given Clopidogrel Bisulfate (Plavix) 75 mg PO DAILY [facility] Last Admin: 05/18/17 09:19 Dose: 75 mg Enoxaparin Sodium (Lovenox) 40 mg SC DAILY [facility] PRN Reason: Protocol Last Admin: 05/18/17 08:25 Dose: Not Given - Labs Labs: 05/18/17 04:55 05/18/17 04:55 PT 11.5 Seconds (9.8-13.1) 05/18/17 04:55 INR 1.0 (0.9-1.2) 05/18/17 04:55 APTT 29.1 Seconds (25.6-37.1) 05/17/17 05:30 - Constitutional Appears: No Acute Distress - Head Exam Head Exam: NORMAL INSPECTION - Neurological Exam Neurological Exam: Alert, Awake, Oriented x3 Neuro motor strength exam: Left Upper Extremity: 4, Right Upper Extremity: 5, Left Lower Extremity: 5, Right Lower Extremity: 5 Additional comments: Neurological unchanged from previous examination. Assessment and Plan (1) Acute CVA (cerebrovascular accident) Assessment & Plan: Case discussed with Dr. Costa, continue all current medical regimen except lovenox today. Patient is for carotid angiogram with possible intervention at [facility] in the cardiac catheterization department this afternoon with Dr. Goodson. Status: Acute
--- NOTE | 2017-05-18 15:01 | CP.PCM.DIS ---
Provider - Provider Date of Admission: 05/15/17 00:40 Attending physician: Taras Piper Primary care physician: none Consults: Neurology consult neuro interventional eval Time Spent in preparation of Discharge (in minutes): 15 Hospital Course - Lab Results Lab Results: Most Recent Lab Values WBC 8.3 K/uL (4.8-10.8) 05/18/17 04:55 RBC 4.75 Mil/uL (4.40-5.90) 05/18/17 04:55 Hgb 14.6 g/dL (12.0-18.0) 05/18/17 04:55 Hct 43.5 % (35.0-51.0) 05/18/17 04:55 MCV 91.7 fl (80.0-94.0) 05/18/17 04:55 MCH 30.7 pg (27.0-31.0) 05/18/17 04:55 MCHC 33.5 g/dL (33.0-37.0) 05/18/17 04:55 RDW 13.1 % (11.5-14.5) 05/18/17 04:55 Plt Count 232 K/uL (130-400) 05/18/17 04:55 MPV 8.4 fl (7.2-11.7) 05/13/17 22:20 Neut % (Auto) 52.8 % (50.0-75.0) 05/13/17 22:20 Lymph % (Auto) 27.9 % (20.0-40.0) 05/13/17 22:20 [place] % (Auto) 11.4 % (0.0-10.0) H 05/13/17 22:20 Eos % (Auto) 7.0 % (0.0-4.0) H 05/13/17 22:20 Baso % (Auto) 0.9 % (0.0-2.0) 05/13/17 22:20 Neut # (Auto) 4.4 K/uL (1.8-7.0) 05/13/17 22:20 Lymph # (Auto) 2.3 K/uL (1.0-4.3) 05/13/17 22:20 [place] # (Auto) 0.9 K/uL (0.0-0.8) H 05/13/17 22:20 Eos # (Auto) 0.6 K/uL (0.0-0.7) 05/13/17 22:20 Baso # (Auto) 0.1 K/uL (0.0-0.2) 05/13/17 22:20 ESR 43 mm/hr (0-20) H 05/14/17 05:45 PT 11.5 Seconds (9.8-13.1) 05/18/17 04:55 INR 1.0 (0.9-1.2) 05/18/17 04:55 APTT 29.1 Seconds (25.6-37.1) 05/17/17 05:30 Sodium 138 mmol/l (132-148) 05/18/17 04:55 Potassium 5.0 MMOL/L (3.6-5.0) 05/18/17 04:55 Chloride 98 mmol/L (98-107) 05/18/17 04:55 Carbon Dioxide 29 mmol/L (22-30) 05/18/17 04:55 Anion Gap 16 (10-20) 05/18/17 04:55 BUN 25 mg/dl (9-20) H 05/18/17 04:55 Creatinine 1.0 mg/dl (0.8-1.5) 05/18/17 04:55 Est GFR ( Amer) > 60 05/18/17 04:55 Est GFR (Non-Af Amer) > 60 05/18/17 04:55 POC Glucose (mg/dL) 91 mg/dL (65-110) 05/13/17 21:56 Random Glucose 84 mg/dL (75-110) 05/18/17 04:55 Hemoglobin A1c 5.7 % (4.2-6.5) 05/14/17 05:45 Calcium 8.9 mg/dL (8.4-10.2) 05/18/17 04:55 Total Bilirubin 0.4 mg/dl (0.2-1.3) 05/13/17 22:20 AST 25 U/L (17-59) 05/13/17 22:20 ALT 27 U/L (21-72) 05/13/17 22:20 Alkaline Phosphatase 72 U/L (38-126) 05/13/17 22:20 Troponin I < 0.0120 ng/mL (0.00-0.120) 05/13/17 22:20 C-React Prot High Sens 4.88 mg/L (1.00-3.00) H 05/14/17 05:45 Total Protein 8.1 G/DL (6.3-8.2) 05/13/17 22:20 Albumin 4.0 g/dL (3.5-5.0) 05/13/17 22:20 Globulin 4.1 gm/dL (2.2-3.9) H 05/13/17 22:20 Albumin/Globulin Ratio 1.0 (1.0-2.1) 05/13/17 22:20 Triglycerides 113 mg/DL (0-149) 05/13/17 22:20 Cholesterol 255 mg/dL (0-199) H 05/13/17 22:20 LDL Cholesterol Direct 195 mg/dL (0-129) H 05/13/17 22:20 HDL Cholesterol 40 MG/DL (30-70) 05/13/17 22:20 Urine Color Yellow (YELLOW) 05/14/17 06:49 Urine Clarity Clear (Clear) 05/14/17 06:49 Urine pH 7.0 (5.0-8.0) 05/14/17 06:49 Ur Specific [place] 1.013 (1.003-1.030) 05/14/17 06:49 Urine Protein Negative mg/dL (NEGATIVE) 05/14/17 06:49 Urine Glucose (UA) Neg mg/dL (Normal) 05/14/17 06:49 Urine Ketones Negative mg/dL (NEGATIVE) 05/14/17 06:49 Urine Blood Negative (NEGATIVE) 05/14/17 06:49 Urine Nitrate Negative (NEGATIVE) 05/14/17 06:49 Urine Bilirubin Negative (NEGATIVE) 05/14/17 06:49 Urine Urobilinogen 0.2-1.0 mg/dL (0.2-1.0) 05/14/17 06:49 Ur Leukocyte Esterase Neg [place]/uL (Negative) 05/14/17 06:49 Urine RBC (Auto) 3 /hpf (0-3) 05/14/17 06:49 Urine Microscopic WBC < 1 /hpf (0-5) 05/14/17 06:49 Ur Squamous Epith Cells < 1 /hpf (0-5) 05/14/17 06:49 Prothrombin Mut Interp see note 05/14/17 05:45 Prothrombin Gene Mutate see note 05/14/17 05:45 Prothromb Gene Review see note 05/14/17 05:45 - Hospital Course Hospital Course: 76 y/o male with no PMH presented with Intermittent left facial numbness , left facial droop ,left arm weakness.He had a similar episode one month ago that resolved spontaneously . CT head showed no acute stroke Patient was admitted for acute stroke MRI head showed :Multifocal small acute infarctions in the right frontal and parietal cortex, and border zone territory. Moderate chronic microangiopathic changes and mild age-related global parenchymal volume loss. Neuro was consulted , started on ASA, statin , plavix . CTA neck and head showed a moderate stenosis at proximal Left ICA. Neuro interventional was consulted and plan is for CTA neck at [facility] with possible intervention for stenosis At present he is hemodynamicallty stable, with no gross neuro deficits , only some weakness to his left hand Lovenox held for procedure today 1. Acute CVA (cerebrovascular accident) Acute only with some left hand aspect weakness. Facial droop , LUE numbness and left facial numbness resolved neuro consulted started ASA, plavix, statin Echo showed normal EF and wall motion but could not rule out small PFO 2. Carotid stenosis, right Acute MRA of Neck : 1. No evidence of hemodynamically significant stenosis in the internal carotid arteries. 2. Apparent sought segment stenosis in the right internal carotid artery approximately 1.5 cm distal to the origin. Correlation with CTA/MRA of the neck with intravenous contrast is recommended for definitive evaluation. CTA of Head and Neck : 1. A moderate stenosis at the proximal right ICA No significant left ICA stenosis. Bilateral common carotid arteries are patent the vascular sclerotic plaque identified at the right greater left carotid bulb regions extending into the external carotid artery somewhat. 2. No significant stenosis identified in the CT angiogram of the brain. Congenital findings are minimal as discussed above. Dr Goodson neuro home service consultant consulted. plan to transfer patient to [facility] today for angiogram cont ASA, Plavix, Statin lovenox on hold for procedure today 3. Dyslipidemia Chol 255 LDl 199 Started Statin 4.DVT prophylaxis on lovenox Discharge Exam - Head Exam Head Exam: ATRAUMATIC, NORMAL INSPECTION, NORMOCEPHALIC - Eye Exam Eye Exam: EOMI, Normal appearance, PERRL Pupil Exam: NORMAL ACCOMODATION - ENT Exam ENT Exam: Mucous Membranes Moist, Normal Exam - Neck Exam Neck exam: Full Rom, Normal Inspection - Respiratory Exam Respiratory Exam: Clear to PA & Lateral, NORMAL BREATHING PATTERN. absent: Rales, Rhonchi, Wheezes - Cardiovascular Exam Cardiovascular Exam: REGULAR RHYTHM, RRR, +S1, +S2. absent: JVD - GI/Abdominal Exam GI & Abdominal Exam: Normal Bowel Sounds, Soft. absent: Distended, Guarding, Rebound, Tenderness - Rectal Exam Rectal Exam: Deferred - Extremities Exam Extremities exam: normal capillary refill, normal inspection, pedal pulses present - Back Exam Back exam: NORMAL INSPECTION - Neurological Exam Neurological exam: Alert, CN II-XII Intact, Oriented x3 - Psychiatric Exam Psychiatric exam: Normal Affect, Normal Mood - Skin Skin Exam: Dry, Intact, Normal Color, Warm Discharge Plan - Discharge Medications Prescriptions: Atorvastatin [Lipitor] 40 mg PO DAILY #30 tab Clopidogrel [Plavix] 75 mg PO DAILY #30 tab - Follow Up Plan Condition: STABLE Disposition: Trans to Other Acute Care Hosp Patient education suggested?: Yes Instructions: Transient Ischemic Attack (DC) Clinical Quality Measures - CQM - Stroke Antithrombotic Prescribed: Yes Statin prescribed: Yes
== END 2017-05-18 12:16 | disposition short-term general hospital (02) | DRG 66 ==
LOC: H.ER 21:25 → H.ERHOLD 05-14 00:33 → H.TEL 05-14 16:39 → OBSVTOIN 05-15 00:40
PROVIDERS: ADMIT Internal Medicine; ATTEND Internal Medicine
DX: I63.511 Cerebral infarction due to unspecified occlusion or stenosis of right middle cerebral artery (principal); E78.5 Hyperlipidemia, unspecified; G83.24 Monoplegia of upper limb affecting left nondominant side; R20.0 Anesthesia of skin; R29.810 Facial weakness; M19.90 Unspecified osteoarthritis, unspecified site